=== PATIENT | female | born 1935 | race Caucasian/White ===

== ENCOUNTER 2017-09-14 09:23 | Observation (INO) | payer MEDICARE ==
[~2017-09-14] VITALS: Ht 180.3 cm; Wt 78.1 kg
[2017-09-14] MEDS ORDERED: NITROGLYCERIN 0.4 MG SL TAB SL ONE (09:59)
[2017-09-14] MEDS ORDERED: ASPIRIN 325 MG TABLET ONE (09:59)
[2017-09-14 10:02] LABS: BASOPHILS % (AUTO) 1.3 % (0.0-5.0); EOSINOPHILS % (AUTO) 1.8 % (0.0-8.0); HEMATOCRIT 43.3 % (36-48); LYMPHOCYTES % (AUTO) 27.2 % (21.0-51.0); MEAN CORPUSCULAR HEMOGLOBIN 31.5 pg (27.0-33.0); MEAN CORPUSCULAR HGB CONC 34.5 g/dL (32.0-36.0); MEAN CORPUSCULAR VOLUME 91.4 fL (79-99); MONOCYTES % (AUTO) 9.6 % (3.0-13.0); NEUTROPHILS % (AUTO) 60.1 % (40.0-77.0); PLATELET COUNT (AUTO) 217 K/uL (130-400); RED BLOOD CELL COUNT(AUTO) 4.74 MIL/uL (4.00-5.50); RED CELL DISTRIBUTION WIDTH 12.4 % (11.0-15.5); WHITE BLOOD COUNT (AUTO) 5.7 K/uL (4.8-10.8)
[2017-09-14 10:08] LABS: CREATININE 1.1 mg/dL (0.5-1.5); POTASSIUM 3.5 mmol/L (3.5-5.1)
[2017-09-14 10:15] LABS: MAGNESIUM 1.7 mg/dL (1.80-2.40)
[2017-09-14 10:17] LABS: INR 2.26 (0.85-1.15); PROTHROMBIN TIME 23.4 SEC (9.6-11.6)
[2017-09-14] MEDS ORDERED: SODIUM CHLORIDE 0.9% 1000ML 1,000 ML IV ONE (10:32)
[2017-09-14 10:35] LABS: B-TYPE NATRIURETIC PEPTIDE 221 pg/mL (0-100)
[2017-09-14 11:07] LABS: ALBUMIN 3.6 g/dL (3.5-5.0); BILIRUBIN,DIRECT 0.2 mg/dL (0.0-0.3); BILIRUBIN,TOTAL 0.6 mg/dL (0.2-1.0); TOTAL PROTEIN, SERUM 7.2 g/dL (6.0-8.3)
[2017-09-14 13:40] VITALS: BP 151/81
[2017-09-14] MEDS ORDERED: WARF3TAB59 PO (14:46)
[2017-09-14] MEDS ORDERED: WARF2.5T85 PO (14:46)
[2017-09-14] MEDS ORDERED: CALC-190 PO (14:59)
[2017-09-14] MEDS ORDERED: LEVO150T11 PO (14:59)
[2017-09-14] MEDS ORDERED: PSYL660P17 PO (14:59)
[2017-09-14] MEDS ORDERED: HYDR25TA PO (14:59)
[2017-09-14] MEDS ORDERED: CLON0.5T4 PO (14:59)
[2017-09-14] MEDS ORDERED: POTA10CA44 PO (14:59)
[2017-09-14] MEDS ORDERED: ANAS1TAB7 PO (14:59)
[2017-09-14] MEDS ORDERED: METO-391 PO (14:59)
[2017-09-14] MEDS ORDERED: CHOL200074 PO (14:59)
[2017-09-14] MEDS ORDERED: ASPI-1181 PO (14:59)
[2017-09-14] MEDS ORDERED: DILT240C94 PO (14:59)
[2017-09-14] MEDS ORDERED: SODIUM CHLORIDE 0.9% 10 ML VIAL IVP PRN (15:00)
[2017-09-14] MEDS ORDERED: ACETAMINOPHEN 325 MG TAB PO PRN (15:00)
[2017-09-14 16:00] VITALS: BP 184/80
[2017-09-14] MEDS ORDERED: CLONAZEPAM 0.5 MG TABLET PO PRN (16:45)
[2017-09-14] MEDS ORDERED: FUROSEMIDE 10 MG/ML 2ML VIAL IV SCH (16:45)
[2017-09-14 17:18] LABS: CREATINE KINASE MB 1.6 ng/mL (0.5-3.6); CREATINE KINASE, TOTAL 105 U/L (21-232); MYOGLOBIN 115 ng/mL (10-92); TROPONIN I < 0.04 ng/mL (0.00-0.06)
[2017-09-14 19:26] VITALS: BP 134/60
[2017-09-14] MEDS ORDERED: METOPROLOL TARTRATE 50 MG TAB PO SCH (21:00)
[2017-09-14 23:31] VITALS: BP 135/72
[2017-09-14] MEDS ORDERED: ONDANSETRON HCL 4 MG/2 ML VIAL IV PRN (23:45)
[2017-09-15] MEDS ORDERED: WARFARIN SODIUM 2.5 MG TAB ONE (00:09)
[2017-09-15] MEDS ORDERED: WARFARIN SODIUM 5 MG TAB ONE (00:09)
[2017-09-15 03:51] VITALS: BP 141/76
[2017-09-15 04:26] LABS: INR 2.12 (0.85-1.15); PROTHROMBIN TIME 21.9 SEC (9.6-11.6)
[2017-09-15 04:37] LABS: CHOLESTEROL 152 mg/dL (<200); HDL CHOLESTEROL 61 mg/dL (35-85); LDL DIRECT 89 mg/dL (0-99); TRIGLYCERIDES 66 mg/dL (30-200)
[2017-09-15] MEDS ORDERED: REGADENOSON 0.4 MG/5 ML PF SYG IVP SCH (06:30)
[2017-09-15 07:00] VITALS: BP 160/90
[2017-09-15] MEDS ORDERED: ANASTROZOLE 1 MG PO SCH (07:30)
[2017-09-15] MEDS ORDERED: DILTIAZEM HCL 120 MG CAP.SR.24H PO SCH (07:30)
[2017-09-15] MEDS ORDERED: LEVOTHYROXINE 150 MCG TABLET PO SCH (07:30)
[2017-09-15] MEDS ORDERED: ASPIRIN 81 MG EC TAB PO SCH (07:30)
[2017-09-15] MEDS ORDERED: CHOLECALCIFEROL 2000 UNIT PO SCH (09:00)
[2017-09-15] MEDS ORDERED: CALCIUM 600 + VITAMIN D 400 TABLET PO SCH (09:00)
[2017-09-15] MEDS ORDERED: FAMOTIDINE/PF 20 MG/2 ML VIAL IV SCH (09:00)
[2017-09-15] MEDS ORDERED: PSYLLIUM SEED 1 EACH PACKET PO SCH (09:00)
[2017-09-15] MEDS ORDERED: PANTOPRAZOLE 40 MG/VIAL IVP SCH (09:00)
[2017-09-15] MEDS ORDERED: HYDROCHLOROTHIAZIDE 25 MG TABLET PO SCH (09:00)
[2017-09-15] MEDS ORDERED: POTASSIUM CHLORIDE 10 MEQ/TAB.SA PO SCH (09:00)
[2017-09-15] MEDS ORDERED: METO-391 PO (09:06)
[2017-09-15 11:00] VITALS: BP 132/71
[2017-09-15] MEDS ORDERED: ALPR0.25 PO (12:14)
[2017-09-15] MEDS ORDERED: ALPRAZOLAM 0.25 MG TABLET PO ONE (12:30)
[2017-09-15] MEDS ORDERED: WARFARIN SODIUM 2.5 MG TAB PO SCH (16:00)
[2017-09-16] MEDS ORDERED: WARFARIN SODIUM 7.5 MG TAB PO SCH (16:00)
== END 2017-09-15 15:40 | disposition home or self-care (01) ==
LOC: EDH 09:23 → EDHIP 11:40 → 2DH 12:58
PROVIDERS: ADMIT Family Medicine; ATTEND Family Medicine
DX: M79.602 Pain in left arm (principal); I48.2 Chronic atrial fibrillation; I11.0 Hypertensive heart disease with heart failure; I50.33 Acute on chronic diastolic (congestive) heart failure; E03.9 Hypothyroidism, unspecified; F41.9 Anxiety disorder, unspecified; I25.10 Atherosclerotic heart disease of native coronary artery without angina pectoris; E11.9 Type 2 diabetes mellitus without complications; Z85.3 Personal history of malignant neoplasm of breast; Z95.0 Presence of cardiac pacemaker; Z79.01 Long term (current) use of anticoagulants
CPT/HCPCS: 36415 ×2; 71045; 80048; 80061; 80076; 82550 ×2; 82553; 83735; 83874; 83880; 84484 ×2; 85025; 85378; 85610 ×2; 85730; 93005 ×3; 93306; 96374; 96375; 99285; A4510; G0378 ×28; J1940; J3490; J7030; J2785

== ENCOUNTER → 2017-09-20 | Outpatient (CLI) | payer MEDICARE ==
[~2017-09-20] MED LIST: ALPR0.25 PO; ANAS1TAB7 PO; ASPI-1181 PO; CALC-190 PO; CHOL200074 PO; CLON0.5T4 PO; DILT240C94 PO; HYDR25TA PO; LEVO150T11 PO; METO-391 PO; POTA10CA44 PO; PSYL660P17 PO; REGADENOSON 0.4 MG/5 ML PF SYG IVP SCH; WARF2.5T85 PO; WARF3TAB59 PO
== END | disposition home or self-care (01) ==
LOC: SHCH 08:03
PROVIDERS: ATTEND Internal Medicine Cardiovascular Disease
DX: I48.91 Unspecified atrial fibrillation (principal)
CPT/HCPCS: 78452; 93017; 96374; A9500 ×2; J2785